=== PATIENT | female | born 1995 | race Two or more races ===

== ENCOUNTER 2022-05-28 10:17 | Emergency (ER) | payer OTHER ==
[~2022-05-28] VITALS: Ht 165.1 cm; Wt 70.9 kg
[2022-05-28 11:22] VITALS: BP 126/86
[2022-05-28] MEDS ORDERED: IBUP800T27 PO (13:17)
[2022-05-28] MEDS ORDERED: CYCL-837 PO (13:17)
== END 2022-05-28 13:27 | disposition home or self-care (01) ==
LOC: ER 10:17 → EDBD 10:17 → ER 13:27
DX: S01.01XA Laceration without foreign body of scalp, initial encounter (principal); S16.1XXA Strain of muscle, fascia and tendon at neck level, initial encounter; S60.222A Contusion of left hand, initial encounter; Z79.899 Other long term (current) drug therapy; Y04.2XXA Assault by strike against or bumped into by another person, initial encounter; Y93.89 Activity, other specified; Y92.89 Other specified places as the place of occurrence of the external cause; Y99.8 Other external cause status
CPT/HCPCS: 12001; 70450; 70486; 72040; 73130; 99284; J2001

== ENCOUNTER 2022-06-01 11:47 | Emergency (ER) | payer OTHER ==
[~2022-06-01] VITALS: Ht 165.1 cm; Wt 71.9 kg
[~2022-06-01 11:47] MED LIST: CYCL-837 PO; IBUP800T27 PO
[2022-06-01 12:38] VITALS: BP 117/72
== END 2022-06-01 14:26 | disposition home or self-care (01) ==
LOC: ER 11:47
DX: S01.01XD Laceration without foreign body of scalp, subsequent encounter (principal); Y08.89XD Assault by other specified means, subsequent encounter

== ENCOUNTER 2022-06-14 10:28 | Emergency (ER) | payer OTHER ==
[~2022-06-14] VITALS: Ht 165.1 cm; Wt 158.6 kg
[2022-06-14 10:34] VITALS: BP 116/78
== END 2022-06-14 12:26 | disposition home or self-care (01) ==
LOC: ER 10:28
DX: S01.01XD Laceration without foreign body of scalp, subsequent encounter (principal); X58.XXXD Exposure to other specified factors, subsequent encounter